=== PATIENT | female | born 1985 ===

== ENCOUNTER → 2024-07-27 | Outpatient (CLI) | payer OTHER | LOC: LAB SHORT 12:08 → LAB 12:08 | DX: Z32.01 Encounter for pregnancy test, result positive (principal) | CPT/HCPCS: 84702 ==

== ENCOUNTER → 2024-08-21 | Outpatient (CLI) | payer OTHER ==
[2024-08-21 14:39] LABS: Appearance, Urine Clear (Clear); Bilirubin, Urine Neg (Neg); Blood, Urine Neg (Neg); Color, Urine Yellow (P-Yellow); Glucose Qualitative, Urine Neg (Neg); Ketones, Urine Neg (Neg); Leukocyte Esterase, Urine Neg (Neg); Nitrite, Urine Neg (Neg); Protein, Urine Neg (Neg); Source, Urine Voided; Urobilinogen, Urine NORM (Normal)
[2024-08-21 14:46] LABS: BASOPHILS ABSOLUTE AUTO 0.02 K/mm3 (0.00-0.23); BASOPHILS PERCENT AUTO 0 % (0-2); EOSINOPHILS ABSOLUTE AUTO 0.09 K/mm3 (0.00-0.68); EOSINOPHILS PERCENT AUTO 1 % (0-6); Hematocrit 42.6 % (33.0-51.0); Hemoglobin 14.7 g/dL (11.5-16.0); IMMATURE GRAN ABSOLUTE AUTO 0.03 K/mm3 (0.00-0.10); IMMATURE GRAN PERCENT AUTO 0 % (0-1); LYMPHOCYTES ABSOLUTE AUTO 2.45 K/mm3 (0.84-5.20); LYMPHOCYTES PERCENT AUTO 27 % (21-46); MONOCYTES ABSOLUTE AUTO 0.65 K/mm3 (0.16-1.47); MONOCYTES PERCENT AUTO 7 % (4-13); Mean Corpuscular HGB 32.9 pg (26.0-34.0); Mean Corpuscular HGB Conc 34.5 g/dL (31.5-36.5); Mean Corpuscular Volume 95 fL (80-100); Mean Platelet Volume 10.5 fL (9.1-12.4); NEUTROPHILS ABSOLUTE AUTO 5.77 K/mm3 (1.96-9.15); NEUTROPHILS PERCENT AUTO 64 % (41-73); Platelet Count 280 K/mm3 (150-400); RDW Coefficient Variation 12.6 % (11.7-14.2); RDW Standard Deviation 44.5 fL (35.1-46.3); Red Blood Cell Count 4.47 M/mm3 (3.80-5.20); White Blood Cell Count 9.01 K/mm3 (4.00-11.30)
[2024-08-23 17:21] LABS: HIV 1,2 COMBO ANTIGEN/ANTIBODY Negative (Negative)
[2024-08-23 17:45] LABS: HEPATITIS C AB CIA INTERP Negative (Negative)
[2024-08-24 10:02] LABS: HEPATITIS B SURFACE ANTIGEN Negative (Negative)
== END | disposition home or self-care (01) ==
LOC: LAB SHORT 12:34 → LAB 12:34
PROVIDERS: Registered Nurse Community Health
DX: Z34.91 Encounter for supervision of normal pregnancy, unspecified, first trimester (principal)
CPT/HCPCS: 81003; 84443; 86803; 87086; 87340; 87389

== ENCOUNTER → 2024-09-29 | Outpatient (CLI) | payer OTHER ==
[2024-09-29 15:40] LABS: Free Thyroxine 1.15 ng/dL (0.70-1.60); Thyroid Stimulating Hormone 4.49 uIU/mL (0.360-4.800)
== END ==
LOC: LAB SHORT 12:54 → LAB 12:54
PROVIDERS: Advanced Practice Midwife
DX: E03.9 Hypothyroidism, unspecified (principal)
CPT/HCPCS: 84439; 84443

== ENCOUNTER → 2024-11-02 | Outpatient (CLI) | payer OTHER ==
[2024-11-02 18:31] LABS: Free Thyroxine 1.11 ng/dL (0.70-1.60); Thyroid Stimulating Hormone 2.52 uIU/mL (0.360-4.800)
== END ==
LOC: LAB 11:50 → LAB SHORT 11:50
PROVIDERS: Advanced Practice Midwife
DX: Z34.82 Encounter for supervision of other normal pregnancy, second trimester (principal)
CPT/HCPCS: 84439; 84443

== ENCOUNTER → 2025-02-15 | Outpatient (CLI) | payer OTHER ==
[2025-02-15 14:20] LABS: Source, Urine Clean Catch
[2025-02-15 16:00] LABS: Bilirubin, Urine Neg (Neg); Color, Urine Yellow (P-Yellow); Glucose Qualitative, Urine Neg (Neg); Ketones, Urine 1+ (Neg); Leukocyte Esterase, Urine Neg (Neg); Protein, Urine 2+ (Neg); Specific Gravity, Urine 1.015 (1.003-1.022); Urobilinogen, Urine NORM (Normal)
[2025-02-15 16:49] LABS: Red Blood Cells, Urine 0-2 /hpf (0-2)
== END ==
LOC: LAB 14:19 → LAB SHORT 14:19
PROVIDERS: Advanced Practice Midwife
DX: R82.998 Other abnormal findings in urine (principal)
CPT/HCPCS: 81001

== ENCOUNTER → 2025-02-22 | Outpatient (CLI) | payer OTHER | LOC: LAB SHORT 12:08 → LAB 12:08 | DX: O09.92 Supervision of high risk pregnancy, unspecified, second trimester (principal) | CPT/HCPCS: 87081; 87150 ==